=== PATIENT | female | born 1955 | race African-American/Black ===

== ENCOUNTER 2019-04-15 08:28 | Emergency (ER) | payer MEDICARE, MEDICAID ==
[~2019-04-15] VITALS: Ht 167.6 cm; Wt 47.6 kg
[2019-04-15 08:28] VITALS: BP 120/79
[2019-04-15] MEDS ORDERED: ASPIR 8181 MG ORAL (08:32)
[2019-04-15] MEDS ORDERED: HYDROCHLOROTH12.5 M2 ORAL (08:32)
--- NOTE | 2019-04-15 08:35 | NUR ---
ED Nurse Note: Patient brought in by ambulance RA [id number] due to "sciatica" pain on the right lower back/hip side radiating to the right lower leg, 8/10 shooting sharp pain. patient is alert awake x4 ambulatory, breathing unlabored and even. patient denies any injury, patient reports history of sciatica
--- NOTE | 2019-04-15 08:57 | Emergency Room Report ---
History of Present Illness General Chief Complaint: Pain Source: EMS Present Illness HPI Patient is a 64-year-old female who presented after increased low back pain. Patient states that she has been having worsening pain over the past few days. She reports having increased difficulty with sleeping. She states this had begun after episode of walking. She attempted to use a back brace without any improvement. She had prior history of chronic low back pain since 2003. She reports having multiple MRIs in the past as well as prior history of CT imaging as well. She states that she has been having a stable weight for several years. She had previously been a smoker but had quit. She denies any fevers. She denies any dysuria. Allergies: Coded Allergies: IBUPROFEN (Verified Allergy, Unknown, 04/15/19) Patient History Past Medical History: see triage record Reviewed Nursing Documentation: PMH: Agreed; PSxH: Agreed Nursing Documentation-PMH Hx Hypertension: Yes - sciatica Review of Systems All Other Systems: negative except mentioned in HPI Physical Exam Vital Signs Date Time Temp Pulse Resp B/P (MAP) Pulse Ox O2 Delivery O2 Flow Rate FiO2 04/15/19 08:28 97.9 95 18 120/79 97 Room Air General Appearance: well appearing, no apparent distress, alert, GCS 15, thin, Chronically Ill Head: normocephalic, atraumatic ENT: hearing grossly normal, normal voice Neck: full range of motion, supple Respiratory: no respiratory distress, speaking full sentences Cardiovascular #1: normal inspection Gastrointestinal: normal inspection Musculoskeletal: normal inspection, back normal, digits/nails normal, gait/ station normal, normal range of motion, decreased range of mation - bilateral hips Neurologic: normal inspection, alert, oriented x3, responsive, e business specialist III-XII nml as tested, normal gait Psychiatric: mood/affect normal Skin: no rash Medical Decision Making ER Course Patient presented for low back pain. Differential diagnosis include was not limited to compression fracture, spinal abscess, tumor among others. X-ray imaging was ordered due to patient's advanced age.Patient reports having prior negative imaging. Last Vital Signs Date Time Temp Pulse Resp B/P (MAP) Pulse Ox O2 Delivery O2 Flow Rate FiO2 04/15/19 08:28 97.9 95 18 120/79 (93) 97 Room Air Kapil Davis MD Apr 15, 2019 08:57
[2019-04-15] MEDS ORDERED: HYDROcodone/Acetamin 5/325 tab ORAL ONE (09:00)
--- NOTE | 2019-04-15 09:08 | NUR ---
ED Nurse Note: UA collected, sent to lab. patient went to xray in stable condition.
[2019-04-15 09:16] LABS: APPEARANCE,URINE CLEAR; BILIRUBIN, URINE 1+ (NEGATIVE); GLUCOSE, URINE (UA) NEGATIVE (NEGATIVE); KETONES,URINE 3+ (NEGATIVE); LEUKOCYTE ESTERASE ,URINE 3+ (NEGATIVE); NITRITE,URINE NEGATIVE (NEGATIVE); PH,URINE 7 (4.5-8.0); PROTEIN,URINE 2+ (NEGATIVE); UROBILINOGEN,URINE 4 MG/DL (0.0-1.0)
[2019-04-15 09:23] LABS: COLOR,URINE YELLOW
--- NOTE | 2019-04-15 10:13 | Diagnostic Imaging Report ---
Indication: Back pain Comparison: None Findings: 3 views of the lumbar spine were obtained. Multilevel narrowing of intervertebral disks and associated endplate and facet osteophytes are present. No malalignment identified. No acute fracture definitely seen. Bones are osteopenic. There are calcifications projected over the area of the pancreas which suggests chronic hepatitis. Aorta is also moderately calcified. Impression: Mild spondylosis. No acute injury appreciated. Suspected chronic pancreatitis Atherosclerotic disease
[2019-04-15] MEDS ORDERED: VOLTAREN100 G1 TP ×2 (10:15→11:22)
[2019-04-15] MEDS ORDERED: NITROFURANTOIN100 M2 ORAL ×2 (10:15→11:22)
[2019-04-15] MEDS ORDERED: CYCLOBENZAPRINE10 MG ORAL ×2 (10:15→11:22)
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
[2019-04-15 10:29] VITALS: BP 120/79
--- NOTE | 2019-04-15 10:30 | NUR ---
ER DISCHARGE NOTE: Patient is cleared to be discharged per ERMD DR ADLER, pt is aox4, on room air, with stable vital signs. pt was given dc and prescription instructions, pt was able to verbalize understanding, pt id band removed without complications. pt is able to ambulate with steady gait. pt took all belongings.
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
== END 2019-04-15 10:30 | disposition home or self-care (01) ==
LOC: EDBD 08:28 → EDUNIT# 08:28 → EMR 08:55
DX: M54.5 Low back pain (principal); Z87.891 Personal history of nicotine dependence; Z88.6 Allergy status to analgesic agent; I10 Essential (primary) hypertension
CPT/HCPCS: 72020; 72170; 81003; 99284